=== PATIENT | male | born 2000 | race Caucasian/White ===

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

== ENCOUNTER 2018-01-12 20:43 | Emergency (ER) | payer SELFPAY ==
[2018-01-12] MEDS ORDERED: TETRACAINE HCL 0.5% OPHTH SOL 1 DROP OPHTH ONE (20:44)
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
[2018-01-13 00:12] VITALS: BP 127/85; TEMP 98.4; O2SAT 97
== END 2018-01-13 00:12 | disposition home or self-care (01) ==
LOC: ER 20:43
DX: H11.31 Conjunctival hemorrhage, right eye (principal); S00.81XA Abrasion of other part of head, initial encounter; S80.212A Abrasion, left knee, initial encounter; S60.812A Abrasion of left wrist, initial encounter; F84.0 Autistic disorder; Y35.813A Legal intervention involving manhandling, suspect injured, initial encounter; Y92.89 Other specified places as the place of occurrence of the external cause